=== PATIENT | male | born 1955 | race Caucasian/White ===

== ENCOUNTER 2018-07-15 10:02 | Inpatient (IN) | payer BC ==
[2018-07-15] MEDS ORDERED: SODIUM CL BACTERIOSTATIC 30 ML INJ (11:30)
[2018-07-15] MEDS: BUPIVACAINE 0.5%/EPI (SDV) 30 ML INJ (11:30)
[2018-07-15] MEDS: THROMBIN 5000 UNIT VIAL (11:31)
[2018-07-15] MEDS: POLYMYXIN/BACITRACIN 1L IRRIG (11:31)
[2018-07-15] MEDS: SURGIFOAM POWDER 1 GM KIT (11:31)
[2018-07-15] MEDS: HEPARIN 1000 UNITS/ML 10 ML INJ (11:31)
[2018-07-15] MEDS: CA CHLORIDE 10% 10 ML SYRINGE (11:31)
[2018-07-15] MEDS ORDERED: SUCCINYLCHOLINE CHLORIDE 100 MG/5 ML SYG IV (11:54)
[2018-07-15] MEDS ORDERED: NEOSTIGMINE 3 MG/3 ML SYRINGE ×2 (11:54→13:26)
[2018-07-15] MEDS ORDERED: LIDOCAINE 2% (SDV) 5 ML INJ (11:54)
[2018-07-15] MEDS ORDERED: GLYCOPYRROLATE 0.4 MG INJ ×2 (11:54→13:26)
[2018-07-15] MEDS ORDERED: PROPOFOL 20 ML (11:54)
[2018-07-15] MEDS ORDERED: ROCURONIUM 50 MG INJ ×2 (11:54→13:26)
[2018-07-15] MEDS ORDERED: CEFAZOLIN 1 GM INJ (11:57)
[2018-07-15] MEDS ORDERED: MEPERIDINE /PF (100 MG/2 ML) AMPULE (11:57)
[2018-07-15] MEDS ORDERED: NALOXONE (0.4 MG/ML) INJ IV (12:30)
[2018-07-15] MEDS ORDERED: DIPHENHYDRAMINE 25 MG CAP PO (12:30)
[2018-07-15] MEDS ORDERED: DIPHENHYDRAMINE 50 MG INJ IV ×2 (12:30→15:30)
[2018-07-15] MEDS ORDERED: BISACODYL 10 MG SUPP PR (12:30)
[2018-07-15] MEDS ORDERED: CEPASTAT LOZENGE MT (12:30)
[2018-07-15] MEDS ORDERED: AL HYDROX/MG HYDROX/SIMETH 30 ML CUP PO (12:30)
[2018-07-15] MEDS ORDERED: CYCLOBENZAPRINE 10 MG TAB PO (12:30)
[2018-07-15] MEDS: CEFAZOLIN 1 GM/50 ML (PMX) 50 ML IVPB ×2 (12:45→19:54)
[2018-07-15] MEDS ORDERED: EPHEDrine SULFATE 50 MG/5 ML SYG (13:26)
[2018-07-15] MEDS ORDERED: SUGAMMADEX SODIUM 200 MG/2 ML VIAL IV (14:46)
[2018-07-15] MEDS ORDERED: METOCLOPRAMIDE 10 MG INJ IV (15:30)
[2018-07-15] MEDS ORDERED: HYDROmorphONE 1 MG/5 ML IV SYRINGE IV (15:30)
[2018-07-15] MEDS ORDERED: FENTAnyl 50 MCG/ML VIAL IV ×3 (15:30)
[2018-07-15] MEDS ORDERED: MIDAZOLAM 1 MG/ML 2 ML INJ IV (15:30)
[2018-07-15] MEDS ORDERED: ONDANSETRON 4 MG INJ IV (15:30)
[2018-07-15] MEDS ORDERED: hydrALAzine 20 MG INJ IV (15:30)
[2018-07-15] MEDS ORDERED: LABETALOL HCL 20MG INJ IV (15:30)
[2018-07-15] MEDS ORDERED: EPHEDrine SULFATE 50 MG/5 ML SYG IV (15:30)
[2018-07-15] MEDS: MEPERIDINE 25 MG INJ IV (15:43)
[2018-07-15] MEDS: HYDROmorphONE 0.2 MG/ML PCA IV (15:48)
[2018-07-15] MEDS: HYDROmorphONE 1 MG/5 ML IV SYRINGE IV ×2 (15:50→15:59)
[2018-07-15] MEDS: D5W-0.45 NACL + KCL 20 MEQ 1,000 ML IV ×2 (18:30→22:04)
[2018-07-15] MEDS: DOCUSATE SODIUM 100 MG CAP PO (21:49)
[2018-07-15] MEDS: ACETAMINOPHEN 325 MG TAB PO (23:49)
[2018-07-16] MEDS: CEFAZOLIN 1 GM/50 ML (PMX) 50 ML IVPB (04:04)
[2018-07-16 05:15] LABS: ADD MAN DIFF? NO
[2018-07-16 05:19] LABS: WHITE BLOOD COUNT 14.2 10^3/ul (4.8-10.8)
[2018-07-16 05:19] LABS: BASOPHILS % 0.1 % (0.0-2.0); HEMATOCRIT 40.4 % (42.0-52.0); HEMOGLOBIN 13.7 g/dl (14.0-18.0); LYMPHOCYTES # 0.7 10^3/ul (0.8-2.9); LYMPHOCYTES % 4.9 % (15.0-51.0); MEAN CORPUSCULAR HEMOGLOBIN 30.9 pg (29.0-33.0); MEAN CORPUSCULAR HGB CONC 33.9 g/dl (32.0-37.0); MEAN PLATELET VOLUME 9.5 fl (7.4-10.4); MONOCYTE # 1.1 10^3/ul (0.3-0.9); MONOCYTES % 7.8 % (0.0-11.0); NEUTROPHIL # 12.3 10^3/ul (1.6-7.5); NEUTROPHILS % 86.6 % (39.0-77.0); PLATELET COUNT 195 10^3/UL (140-415); RED BLOOD COUNT 4.44 10^6/ul (4.70-6.10)
[2018-07-16] MEDS: D5W-0.45 NACL + KCL 20 MEQ 1,000 ML IV (05:37)
[2018-07-16] MEDS: PANTOPRAZOLE 40 MG INJ IV (05:37)
[2018-07-16 05:50] LABS: ANION GAP 7 (5-13); BLOOD UREA NITROGEN 14 mg/dl (7-20); CALCIUM 8.6 mg/dl (8.4-10.2); CARBON DIOXIDE 23 mmol/L (21-31); CHLORIDE 107 mmol/L (97-110); CREATININE 0.93 mg/dl (0.61-1.24); Estimated GFR > 60 mL/min (>60); GLUCOSE 136 mg/dl (70-220); POTASSIUM 4.1 mmol/L (3.5-5.1); SODIUM 137 mmol/L (135-144)
[2018-07-16] MEDS: DOCUSATE SODIUM 100 MG CAP PO (08:41)
[2018-07-16] MEDS: HYDROCODONE/APAP (10/325) TAB PO (08:41)
[2018-07-16] MEDS ORDERED: HYDROmorphONE 0.5 MG/0.5 ML SYG IV (13:00)
[2018-07-16] MEDS ORDERED: HYDROCODONE/APAP (10/325) TAB PO ×2 (13:00)
== END 2018-07-16 13:02 | disposition home or self-care (01) | DRG 520 ==
LOC: REC 10:02 → MS1 17:03
PROC: 0SB40ZZ Excision of Lumbosacral Disc, Open Approach (ICD-10-PCS; principal; 2018-07-15 12:00)
PROC: 01NB0ZZ Release Lumbar Nerve, Open Approach (ICD-10-PCS; 2018-07-15 12:00)
PROC: 01NR0ZZ Release Sacral Nerve, Open Approach (ICD-10-PCS; 2018-07-15 12:00)
DX: M51.17 Intervertebral disc disorders with radiculopathy, lumbosacral region (principal); M48.07 Spinal stenosis, lumbosacral region; M48.061 Spinal stenosis, lumbar region without neurogenic claudication
CPT/HCPCS: 72100; 80048; 83735; 85025; 86999; 88304; 97116; 97161